=== PATIENT | male | born 2000 | race Caucasian/White ===

== ENCOUNTER 2020-12-10 14:17 | Emergency (ER) | payer OTHER ==
[~2020-12-10] VITALS: Ht 172.7 cm; Wt 72.7 kg
[2020-12-10 14:23] VITALS: TEMP 98
[2020-12-10] MEDS ORDERED: CEPHALEXIN500 M1 PO (17:03)
[2020-12-10] MEDS ORDERED: ROXICODONE 55 MG/TAB PO (17:03)
[2020-12-10 17:45] VITALS: BP 121/74; PULSE 89
== END 2020-12-10 18:00 | disposition home or self-care (01) ==
LOC: COL.ER 14:17
DX: S62.631A Displaced fracture of distal phalanx of left index finger, initial encounter for closed fracture (principal); S62.633A Displaced fracture of distal phalanx of left middle finger, initial encounter for closed fracture; S61.315A Laceration without foreign body of left ring finger with damage to nail, initial encounter; Z88.5 Allergy status to narcotic agent; Z88.1 Allergy status to other antibiotic agents; W22.8XXA Striking against or struck by other objects, initial encounter